=== PATIENT | female | born 1935 | race Asian ===

== ENCOUNTER 2018-05-31 13:28 | Inpatient (IN) | payer MEDICARE, OTHER ==
[~2018-05-31] VITALS: Ht 147.3 cm; Wt 53.1 kg
[2018-05-31 14:20] LABS: BASOPHILS % 1.1 % (0.0-2.0); HEMATOCRIT. 34.2 % (36.0-48.0); HEMOGLOBIN. 11.8 g/dL (12.0-16.0); LYMPHOCYTES % 26.9 % (20.0-50.0); MEAN CORPUSCULAR HEMOGLOBIN 30.9 pg (28.0-32.0); MEAN PLATELET VOLUME 8.6 fl (7.4-10.4); MONOCYTES % 5.8 % (2.0-8.0); NEUTROPHILS % 65.2 % (40.0-76.0); PLATELET 209 x1000/uL (130-400); RED BLOOD CELL COUNT 3.81 mill/uL (4.2-5.4)
[2018-05-31 14:22] LABS: CHLORIDE 96 mEq/L (98-107)
[2018-05-31 14:23] LABS: PROTHROMBIN TIME 10.1 sec (9.1-11.1)
[2018-05-31 14:25] LABS: ETHANOL BLOOD < 10 mg/dL
[2018-05-31 14:28] LABS: LDL CHOLESTEROL 131 mg/dL (5-100)
[2018-05-31] MEDS ORDERED: SODIUM CHLORIDE 0.9% 1,000 ML IV ONE (14:55)
[2018-05-31 15:41] LABS: CLARITY URINE CLEAR (CLEAR); COLOR URINE YELLOW (YELLOW); KETONES URINE NEGATIVE (NEGATIVE); LEUKOCYTE ESTERASE URINE TRACE (NEGATIVE); NITRITE URINE NEGATIVE (NEGATIVE); OCCULT BLOOD URINE TRACE (NEGATIVE); PH URINE 6.5 (4.5-8.0); PROTEIN URINE NEGATIVE (NEGATIVE); SPECIFIC GRAVITY URINE 1.013 (1.005-1.030); UROBILINOGEN URINE 0.2 E.U./dL (0.2-1.0)
[2018-05-31 16:03] LABS: *AMPHETAMINES SCREEN URINE NEGATIVE (NEGATIVE); *BARBITURATES SCREEN URINE NEGATIVE (NEGATIVE); *BENZODIAZEPINES SCREEN URINE NEGATIVE (NEGATIVE); *COCAINE SCREEN URINE NEGATIVE (NEGATIVE); CANNABINOID URINE SCREEN NEGATIVE (NEGATIVE)
[2018-05-31 16:04] LABS: METHADONE URINE SCREEN NEGATIVE (NEGATIVE); OPIATES URINE SCREEN NEGATIVE (NEGATIVE); PHENCYCLIDINE URINE SCREEN NEGATIVE (NEGATIVE)
[2018-05-31] MEDS: SODIUM CHLORIDE 0.9% 1,000 ML IV SCH ×2 (17:37→22:40)
[2018-05-31] MEDS ORDERED: IPRATROPIUM/ALBUTEROL 0.5-3(2.5)MG/3ML NEB INH PRN (17:45)
[2018-05-31] MEDS ORDERED: ONDANSETRON HCL 4MG/2ML INJ IV PRN (17:45)
[2018-05-31] MEDS ORDERED: LEVOFLOXACIN 500MG PREMIX 100 ML IV SCH (17:45)
[2018-05-31] MEDS ORDERED: TRAMADOL 50MG TABLET PO PRN (17:45)
[2018-05-31] MEDS ORDERED: MORPHINE SULFATE 4 MG/ML CPJ (NOT FOR IM USE) IV PRN (17:45)
[2018-05-31] MEDS ORDERED: GUAIFENESIN 200MG/10ML SUGAR FREE UDC PO PRN (17:45)
[2018-05-31] MEDS ORDERED: ENOXAPARIN 40MG/0.4ML SYR SUBCUT SCH (17:45)
[2018-05-31] MEDS ORDERED: DOCUSATE SODIUM 100MG CAPSULE PO PRN (17:45)
[2018-05-31] MEDS ORDERED: NA PHOS,M-B/NA PHOS,DI-BA ENEMA 118ML PR PRN (17:45)
[2018-05-31] MEDS ORDERED: MAGNESIUM/ALUMINUM HYDROXIDE/SIMETHICONE 30ML UDC PO PRN (17:45)
[2018-05-31] MEDS ORDERED: CLONIDINE 0.1MG TABLET PO PRN (17:45)
[2018-05-31] MEDS ORDERED: ACETAMINOPHEN 325MG TABLET PO PRN (17:45)
[2018-05-31] MEDS ORDERED: NITROGLYCERIN 0.4MG TABLET SL SL PRN (17:45)
[2018-05-31 18:58] LABS: T4 FREE 0.97 ng/dL (0.76-1.46)
[2018-05-31 19:26] LABS: VITAMIN B12 SERUM 752 pg/mL (211-911)
[2018-05-31 19:29] LABS: FOLIC ACID (FOLATE) SERUM > 20.00 ng/mL (>5.38)
[2018-05-31] MEDS ORDERED: ZOLPIDEM TARTRATE 5MG TABLET PO PRN (21:30)
[2018-05-31 22:00] VITALS: BP 166/57
[2018-05-31] MEDS: ATORVASTATIN CALCIUM 10MG TABLET PO SCH (22:40)
[2018-05-31] MEDS: ASCORBIC ACID 500 MG TABLET PO SCH (22:40)
[2018-05-31] MEDS ORDERED: LISI1TAB9 PO (23:22)
[2018-05-31] MEDS: CEFTRIAXONE 1 G PREMIX 50 ML IV SCH (23:44)
[2018-06-01] VITALS (16 sets, daily range): BP systolic 109–157; BP diastolic 54–69
[2018-06-01 00:58] LABS: CREATINE KINASE 77 IU/L (26-192)
[2018-06-01 00:59] LABS: CREATINE KINASE MB FRACTION 1.3 ng/mL (0.5-3.6)
[2018-06-01] MEDS ORDERED: LEVOFLOXACIN 500MG PREMIX 100 ML IV NR (01:00)
[2018-06-01 08:35] LABS: CREATINE KINASE 68 IU/L (26-192)
[2018-06-01 08:37] LABS: CREATINE KINASE MB FRACTION < 1.0 ng/mL (0.5-3.6)
[2018-06-01] MEDS ORDERED: CEFTRIAXONE 1 G PREMIX 50 ML IV SCH (09:00)
[2018-06-01] MEDS: ZINC SULFATE 220 MG ( 50 ) CAPSULE PO SCH (09:50)
[2018-06-01] MEDS: ENOXAPARIN 30MG/0.3ML SYR SUBCUT SCH (09:50)
[2018-06-01] MEDS: ASCORBIC ACID 500 MG TABLET PO SCH ×2 (09:52→20:43)
[2018-06-01] MEDS: FAMOTIDINE 20MG TABLET PO SCH (09:52)
[2018-06-01] MEDS: ASPIRIN 325MG EC TABLET PO SCH (09:52)
[2018-06-01] MEDS: SODIUM CHLORIDE 0.9% 1,000 ML IV SCH (14:33)
[2018-06-01] MEDS: ATORVASTATIN CALCIUM 10MG TABLET PO SCH (20:43)
[2018-06-01] MEDS: CEFTRIAXONE 1 G PREMIX 50 ML IV SCH (23:01)
[2018-06-02] VITALS (8 sets, daily range): BP systolic 110–164; BP diastolic 42–70
[2018-06-02] MEDS: LEVOFLOXACIN 250MG PREMIX 50 ML IV SCH (00:52)
[2018-06-02] MEDS: ZINC SULFATE 220 MG ( 50 ) CAPSULE PO SCH (08:10)
[2018-06-02] MEDS: FAMOTIDINE 20MG TABLET PO SCH (08:10)
[2018-06-02] MEDS: ASCORBIC ACID 500 MG TABLET PO SCH ×2 (08:10→20:36)
[2018-06-02] MEDS: ASPIRIN 325MG EC TABLET PO SCH (08:10)
[2018-06-02] MEDS: ENOXAPARIN 30MG/0.3ML SYR SUBCUT SCH (08:13)
[2018-06-02] MEDS: SODIUM CHLORIDE 0.9% 1,000 ML IV SCH ×2 (08:57→20:38)
[2018-06-02] MEDS: ATORVASTATIN CALCIUM 10MG TABLET PO SCH (20:36)
[2018-06-02] MEDS: CEFTRIAXONE 1 G PREMIX 50 ML IV SCH (23:36)
[2018-06-03] VITALS: BP 143/116
[2018-06-03] MEDS: LEVOFLOXACIN 250MG PREMIX 50 ML IV SCH (00:25)
[2018-06-03 02:00] VITALS: BP 146/59
[2018-06-03 04:00] VITALS: BP 164/67
[2018-06-03 08:00] VITALS: BP 148/103
[2018-06-03] MEDS: ASPIRIN 325MG EC TABLET PO SCH (08:31)
[2018-06-03] MEDS: ASCORBIC ACID 500 MG TABLET PO SCH (08:31)
[2018-06-03] MEDS: ZINC SULFATE 220 MG ( 50 ) CAPSULE PO SCH (08:31)
[2018-06-03] MEDS: FAMOTIDINE 20MG TABLET PO SCH (08:31)
[2018-06-03] MEDS: ENOXAPARIN 30MG/0.3ML SYR SUBCUT SCH (08:33)
[2018-06-03 10:00] VITALS: BP 116/60
[2018-06-03 12:44] VITALS: BP 131/54
== END 2018-06-03 14:40 | disposition home health service (06) | DRG 720 ==
LOC: ER 13:28 → 5EST 15:09 → SUPCPDRO 15:15 → CANRESERV 18:47 → ENRESERV 18:47 → EDBEDREQSVC 19:37 → ENRESERV 20:06
PROVIDERS: ADMIT Internal Medicine; ATTEND Internal Medicine
DX: A41.9 Sepsis, unspecified organism (principal); R65.21 Severe sepsis with septic shock; E87.1 Hypo-osmolality and hyponatremia; G45.9 Transient cerebral ischemic attack, unspecified; N39.0 Urinary tract infection, site not specified; D63.8 Anemia in other chronic diseases classified elsewhere; E78.00 Pure hypercholesterolemia, unspecified; I10 Essential (primary) hypertension
CPT/HCPCS: 36415; 70544; 70547; 70553; 71045; 80061; 80305; 82550; 82553; 82607; 82746; 82962; 83036; 83540; 83550; 83605; 83721; 84439; 84443; 84484; 93005; 93306; 93970; 96360; 96361; 97116; 97162; 97166; 99285; G0482; J0696; J1650; J1956; J2270; J2405; J7030

== ENCOUNTER 2019-08-12 17:55 | Inpatient (IN) | payer MEDICARE, OTHER ==
[~2019-08-12] VITALS: Ht 137.2 cm; Wt 46.3 kg
[~2019-08-12 17:55] MED LIST: LISI1TAB9 PO
[2019-08-12] MEDS ORDERED: ONDANSETRON HCL 4MG/2ML INJ IV STA (18:34)
[2019-08-12] MEDS ORDERED: SODIUM CHLORIDE 0.9% 1,000 ML IV ONE (18:34)
[2019-08-12] MEDS ORDERED: MECLIZINE 12.5MG TABLET PO ONE (18:45)
[2019-08-12 19:17] LABS: BASOPHILS % 1.1 % (0.0-2.0); EOSINOPHILS % 1.7 % (0.0-5.0); HEMOGLOBIN. 10.7 g/dL (12.0-16.0); LYMPHOCYTES % 8.1 % (20.0-50.0); MEAN CORPUSCULAR HEMOGLOBIN 29.7 pg (28.0-32.0); MEAN CORPUSCULAR VOLUME 88.9 fL (81.0-99.0); MEAN PLATELET VOLUME 7.9 fl (7.4-10.4); NEUTROPHILS % 84.1 % (40.0-76.0); PLATELET 234 x1000/uL (130-400); RED CELL DISTRIBUTION WIDTH 14.1 % (11.6-14.6)
[2019-08-12 19:19] LABS: CHLORIDE 106 mEq/L (98-107)
[2019-08-12 19:22] LABS: PARTIAL THROMBOPLASTIN TIME 22.2 sec (23.4-31.0)
[2019-08-12 22:50] VITALS: BP 139/61
[2019-08-13] MEDS ORDERED: MAGNESIUM/ALUMINUM HYDROXIDE/SIMETHICONE 30ML UDC PO PRN (01:00)
[2019-08-13] MEDS ORDERED: DIPHENHYDRAMINE 50MG/ML VIAL IV PRN (01:00)
[2019-08-13] MEDS ORDERED: ACETAMINOPHEN 325MG TABLET PO PRN (01:00)
[2019-08-13] MEDS ORDERED: MECLIZINE 12.5MG TABLET PO PRN (01:00)
[2019-08-13] MEDS ORDERED: ONDANSETRON HCL 4MG/2ML INJ IV PRN (01:00)
[2019-08-13] MEDS ORDERED: MVI, ADULT NO.1 10 ML, FOLIC ACID 1 MG, THIAMINE HCL 100 MG in SODIUM CHLORIDE 0.9% 1,0... IV SCH ×4 (03:00)
[2019-08-13 04:00] VITALS: BP_SYST 128; BP_SYST 131; BP_SYST 132; BP_DIAS 49; BP_DIAS 53; BP_DIAS 59
[2019-08-13] MEDS: SODIUM CHLORIDE 0.9% INJ 3ML FLUSH IVF SCH ×3 (06:07→21:38)
[2019-08-13 07:07] LABS: HEMATOCRIT 26.7 % (36.0-48.0); HEMOGLOBIN 8.8 g/dL (12.0-16.0); MEAN CORPUSCULAR HEMOGLOBIN 29.1 pg (28.0-32.0); MEAN CORPUSCULAR VOLUME 88.8 fL (81.0-99.0); PLATELET 186 x1000/uL (130-400); RED BLOOD CELL COUNT 3.01 mill/uL (4.2-5.4)
[2019-08-13 07:22] LABS: CHLORIDE 113 mEq/L (98-107)
[2019-08-13 07:37] LABS: TOTAL IRON BINDING CAPACITY 236 ug/dL (250-450)
[2019-08-13 08:01] VITALS: BP_SYST 134; BP_SYST 141; BP_SYST 162; BP_DIAS 46; BP_DIAS 53; BP_DIAS 65
[2019-08-13] MEDS: LISINOPRIL 5MG TABLET PO SCH ×2 (08:36→21:37)
[2019-08-13 09:18] LABS: BG BASE EXCESS -3.3 mmol/L (-2.0-2.0); BG CARBOXYHEMOGLOBIN 0.1 % (0.5-1.5); BG DEOXYHEMOGLOBIN 4.1 % (0.0-5.0); BG FRACTION INSPIRED OXYGEN 21; BG HCO3 ACT 21.5 mmol/L (22.0-26.0); BG METHEMOGLOBIN 0.3 % (0.0-1.5); BG OXYGEN SATURATION 95.9 % (92.0-98.5); BG OXYHEMOGLOBIN 95.5 % (94.0-97.0); BG PCO2 37.4 mmHg (35.0-45.0); BG PH 7.377 (7.350-7.450); BG PO2 82.9 mmHg (75.0-100.0); BG SAMPLE SITE RIGHT RADIAL; BG TOTAL HEMOGLOBIN 10.1 g/dL (12.0-18.0); BG VENT MODE ROOM AIR
[2019-08-13] MEDS ORDERED: ATOR10TA69 PO (11:05)
[2019-08-13] MEDS ORDERED: ZINC220T4 MT (11:05)
[2019-08-13] MEDS ORDERED: ASPI-1158 PO (11:05)
[2019-08-13] MEDS ORDERED: AMLO2.5T45 PO (11:05)
[2019-08-13] MEDS ORDERED: FERR325T6 PO (11:05)
[2019-08-13] MEDS ORDERED: VIT500LI PO (11:05)
[2019-08-13 11:37] LABS: CLARITY URINE CLEAR (CLEAR); COLOR URINE YELLOW (YELLOW); KETONES URINE NEGATIVE (NEGATIVE); LEUKOCYTE ESTERASE URINE 2+ (NEGATIVE); NITRITE URINE NEGATIVE (NEGATIVE); OCCULT BLOOD URINE TRACE (NEGATIVE); PH URINE 5.5 (4.5-8.0); PROTEIN URINE NEGATIVE (NEGATIVE); UROBILINOGEN URINE 0.2 E.U./dL (0.2-1.0)
[2019-08-13 12:00] VITALS: BP 121/44
[2019-08-13] MEDS: AMLODIPINE 2.5MG TABLET PO SCH (14:11)
[2019-08-13] MEDS ORDERED: LEVOFLOXACIN 500MG PREMIX 100 ML IV NR (15:00)
[2019-08-13 16:00] VITALS: BP 109/30
[2019-08-13 20:00] VITALS: BP_SYST 120; BP_SYST 121; BP_SYST 139; BP_DIAS 58; BP_DIAS 65; BP_DIAS 68
[2019-08-13] MEDS ORDERED: ATORVASTATIN CALCIUM 10MG TABLET PO SCH (21:00)
[2019-08-14] VITALS: BP 128/57
[2019-08-14 03:57] VITALS: BP 130/60
[2019-08-14] MEDS: SODIUM CHLORIDE 0.9% INJ 3ML FLUSH IVF SCH ×2 (06:12→14:25)
[2019-08-14 08:00] VITALS: BP_SYST 121; BP_SYST 158; BP_SYST 160; BP_SYST 168; BP_DIAS 59; BP_DIAS 61; BP_DIAS 70; BP_DIAS 77
[2019-08-14 08:06] LABS: EOSINOPHILS % 2.7 % (0.0-5.0); HEMATOCRIT. 26.2 % (36.0-48.0); HEMOGLOBIN. 8.8 g/dL (12.0-16.0); LYMPHOCYTES % 22.2 % (20.0-50.0); MEAN CORPUSCULAR HEMOGLOBIN 29.7 pg (28.0-32.0); MEAN CORPUSCULAR VOLUME 88.6 fL (81.0-99.0); MEAN PLATELET VOLUME 7.6 fl (7.4-10.4); MONOCYTES % 6.6 % (2.0-8.0); NEUTROPHILS % 67.5 % (40.0-76.0); PLATELET 182 x1000/uL (130-400); RED BLOOD CELL COUNT 2.95 mill/uL (4.2-5.4); RED CELL DISTRIBUTION WIDTH 13.7 % (11.6-14.6)
[2019-08-14] MEDS: LISINOPRIL 5MG TABLET PO SCH (08:24)
[2019-08-14] MEDS: AMLODIPINE 2.5MG TABLET PO SCH (08:24)
[2019-08-14 12:00] VITALS: BP 128/51
[2019-08-14] MEDS ORDERED: LEVOFLOXACIN 250MG PREMIX 50 ML IV SCH (15:00)
[2019-08-14 15:06] VITALS: BP 145/53
[2019-08-14 16:00] VITALS: BP 145/53
[2019-08-15] MEDS ORDERED: LEVOFLOXACIN 250MG TABLET PO SCH (11:00)
== END 2019-08-14 16:33 | disposition home or self-care (01) | DRG 48 ==
LOC: ER 17:55 → EDBEDREQ 18:37 → 7WST 21:22 → EDBEDREQ 21:30 → EDBEDREQTM 21:30 → ENRESERV 22:23
PROVIDERS: ADMIT Internal Medicine; ATTEND Internal Medicine
DX: G90.8 Other disorders of autonomic nervous system (principal); D64.9 Anemia, unspecified; I11.9 Hypertensive heart disease without heart failure; N39.0 Urinary tract infection, site not specified; E78.5 Hyperlipidemia, unspecified; K30 Functional dyspepsia; I49.3 Ventricular premature depolarization; M19.90 Unspecified osteoarthritis, unspecified site; Z79.899 Other long term (current) drug therapy
CPT/HCPCS: 36415; 36600; 71045; 80048; 81003; 82375; 82805; 83540; 83550; 83735; 83880; 84100; 84443; 84484; 85027; 93005; 93306; 93970; 96374; 99285; J1956; J2405; J3411; J3490; J7030; J8597